=== PATIENT | female | born 2000 | race Two or more races ===

== ENCOUNTER 2022-05-28 12:14 | Emergency (ER) | payer OTHER ==
[~2022-05-28] VITALS: Ht 157.5 cm; Wt 49.9 kg
[2022-05-28 12:14] VITALS: BP 117/69
[2022-05-28] MEDS ORDERED: IBUP-1955 PO (13:54)
== END 2022-05-28 14:24 | disposition home or self-care (01) ==
LOC: ER 12:24
DX: S50.01XA Contusion of right elbow, initial encounter (principal); X58.XXXA Exposure to other specified factors, initial encounter; Y93.64 Activity, baseball; Y92.89 Other specified places as the place of occurrence of the external cause; Y99.8 Other external cause status
CPT/HCPCS: 73080-TC

== ENCOUNTER 2022-08-07 01:10 | Emergency (ER) | payer OTHER ==
[~2022-08-07] VITALS: Ht 157.5 cm; Wt 49.9 kg
[~2022-08-07 01:10] MED LIST: IBUP-1955 PO
[2022-08-07] MEDS ORDERED: IBUPROFEN 400 MG TABLET PO ONE (03:00)
[2022-08-07 03:01] VITALS: BP 121/67
[2022-08-07] MEDS ORDERED: IBUPROFEN 400 MG TABLET ONE (03:02)
--- NOTE | 2022-08-07 03:10 | NUR ---
COVID AND FLU SWAB COLLECTED.
== END 2022-08-07 05:10 | disposition home or self-care (01) ==
LOC: ER 01:13
DX: J06.9 Acute upper respiratory infection, unspecified (principal); Z20.822 Contact with and (suspected) exposure to COVID-19
CPT/HCPCS: 99283; 87426; 87804; C9803

== ENCOUNTER 2022-09-30 13:48 | Emergency (ER) | payer OTHER ==
[~2022-09-30] VITALS: Ht 157.5 cm; Wt 49.9 kg
--- NOTE | 2022-09-30 14:24 | NUR ---
COVID SWAB AND STREP SWAB TAKEN SENT TO LAB ,
--- NOTE | 2022-09-30 14:42 | NUR ---
RAPID INFLU SWAB TAKEN SENT TO LAB
--- NOTE | 2022-09-30 15:30 | NUR ---
Aide massey in [facility] - 09/30/22 at 1532 by NILAM strep swab collected and sent to lab
[2022-09-30] MEDS ORDERED: POLY10DR OP (15:51)
--- NOTE | 2022-09-30 16:01 | NUR ---
Patient discharged to home in stable condition. Written and verbal after care instructions given. Patient verbalizes understanding of instruction.
[2022-09-30 16:02] VITALS: BP 121/81
== END 2022-09-30 16:02 | disposition home or self-care (01) ==
LOC: ER 13:53
DX: J06.9 Acute upper respiratory infection, unspecified (principal); Z20.822 Contact with and (suspected) exposure to COVID-19; H10.9 Unspecified conjunctivitis
CPT/HCPCS: 99283; 87426; 87804 ×2; 87880; C9803; 86403-TC